=== PATIENT | male | born 1985 | race Caucasian/White ===

== ENCOUNTER 2025-02-04 15:51 | Inpatient (IN) | payer OTHER ==
[~2025-02-04] VITALS: Ht 167.6 cm; Wt 77.3 kg
[2025-02-04 16:34] LABS: PLATELET COUNT (AUTO) 396 K/uL (150-450); RED BLOOD CELL COUNT(AUTO) 5.00 MIL/uL (4.50-5.90); RED CELL DISTRIBUTION WIDTH 12.6 % (11.5-14.5); WHITE BLOOD COUNT (AUTO) 9.5 K/uL (4.5-11.0)
[2025-02-04 16:39] LABS: APPEARANCE,URINE CLEAR (CLEAR); GLUCOSE, URINE (UA) NEGATIVE (NEGATIVE); LEUKOCYTE ESTERASE ,URINE NEGATIVE (NEGATIVE); NITRATE,URINE NEGATIVE (NEGATIVE); OCCULT BLOOD,URINE NEGATIVE (NEGATIVE); PH,URINE DRUG SCREEN 8.0 (5.0-8.0); SPECIFIC GRAVITIY, URINE 1.011 (1.003-1.030)
[2025-02-04 16:41] LABS: CALCIUM, TOTAL 9.5 mg/dL (8.8-10.5); CREATININE 0.96 mg/dL (0.60-1.30); GLOMERULAR FILTR. RATE CALC > 60 mL/min (>60); GLUCOSE,RANDOM 112 mg/dL (70-110); SODIUM SERUM 137 mmol/L (136-145); UREA NITROGEN, BLOOD 12 mg/dL (7-18)
[2025-02-04 16:46] LABS: AMPHET/METH SCREEN,URINE POSITIVE (NEGATIVE); BARBITURATE SCREEN, URINE NEGATIVE (NEGATIVE); CANNABINOID SCREEN,URINE POSITIVE (NEGATIVE); COCAINE SCREEN,URINE NEGATIVE (NEGATIVE); METHADONE SCREEN, URINE NEGATIVE (NEGATIVE)
[2025-02-04 16:48] LABS: ASPARTATE AMINOTRANSFERASE 25.0 U/L (15-37); TOTAL PROTEIN, SERUM 8.5 g/dL (6.4-8.2)
[2025-02-04 16:54] LABS: ALCOHOL, URINE DRUG SCREEN NEGATIVE (NEGATIVE)
[2025-02-04] MEDS: SODIUM CHLORIDE 0.9% 1,000 ML IV ONE (16:55)
[2025-02-04] MEDS: ONDANSETRON HCL 4 MG/2 ML VIAL IVP ONE (16:56)
[2025-02-04] MEDS: KETOROLAC TROMETHAMINE 30 MG/ML VIAL IVP ONE ×2 (17:06→17:14)
[2025-02-04] MEDS ORDERED: MAGNESIUM HYDROXIDE SUSPENSION 30 ML UDCUP PO PRN (18:15)
[2025-02-04] MEDS: FAMOTIDINE 20 MG TABLET PO SCH (21:00)
[2025-02-04 21:29] VITALS: BP 135/89; PULSE 83; RESP 17; TEMP 97.9; O2SAT 99
[2025-02-04] MEDS: ACETAMINOPHEN 325 MG TABLET PO PRN (21:38)
[2025-02-04] MEDS: ZOLPIDEM TARTRATE 5 MG TABLET PO PRN (21:38)
[2025-02-05] MEDS: LORazepam 2 MG/ML VIAL IVP PRN (03:32)
[2025-02-05 03:35] VITALS: BP 127/85; PULSE 94; RESP 18; TEMP 98.7; O2SAT 100
[2025-02-05 08:28] VITALS: BP 131/81; PULSE 79; RESP 18; TEMP 98.2; O2SAT 100
[2025-02-05 15:17] VITALS: BP 120/76; PULSE 90; RESP 18; TEMP 97.9; O2SAT 100
[2025-02-05 21:53] VITALS: BP 124/76; PULSE 91; RESP 20; TEMP 97.7; O2SAT 97
[2025-02-06 03:37] VITALS: BP 109/66; PULSE 87; RESP 18; TEMP 97.3; O2SAT 99
[2025-02-06] MEDS: ONDANSETRON HCL 4 MG/2 ML VIAL IVP PRN (03:43)
[2025-02-06 09:15] VITALS: BP 136/92; PULSE 81; RESP 18; TEMP 97.3; O2SAT 97
[2025-02-06 12:41] VITALS: BP 136/92; PULSE 81; RESP 18; TEMP 97.3; O2SAT 97
[2025-02-06] MEDS ORDERED: ACETAMINOPHEN 325 MG TABLET PO PRN (14:15)
[2025-02-06] MEDS ORDERED: PROMETHAZINE HCL 25 MG TABLET PO PRN (14:15)
[2025-02-06] MEDS ORDERED: IBUPROFEN 600 MG TABLET PO PRN (14:15)
[2025-02-06] MEDS ORDERED: LOPERAMIDE HCL 2 MG/15 ML SUSPENSION UDCUP PO PRN (14:15)
[2025-02-06] MEDS ORDERED: MAG HYDROX/ALUMINUM HYD/SIMETH ES 30 ML SUSPENSION UDCUP PO PRN ×2 (14:15)
[2025-02-06] MEDS ORDERED: SODIUM CHLORIDE 0.45% 1,000 ML IV SCH (14:15)
[2025-02-06] MEDS: IBUPROFEN 600 MG TABLET PO PRN (15:45)
[2025-02-06] MEDS: DICYCLOMINE HCL 10 MG CAPSULE PO PRN (15:45)
[2025-02-06] MEDS: BACLOFEN 10 MG TABLET PO PRN (15:46)
[2025-02-06 17:40] VITALS: BP 136/92; PULSE 81; RESP 18; TEMP 97.3; O2SAT 97
[2025-02-06 19:54] VITALS: BP 103/67; PULSE 66; RESP 18; TEMP 98.1; O2SAT 99
[2025-02-06 22:14] VITALS: BP 113/71; PULSE 67; RESP 18; O2SAT 97
[2025-02-07 03:59] VITALS: BP 118/76; PULSE 65; RESP 18; TEMP 97.7; O2SAT 97
[2025-02-07 08:00] VITALS: BP 113/72; PULSE 72; RESP 20; TEMP 98.4; O2SAT 98
[2025-02-07 08:47] VITALS: BP 113/72; PULSE 72; RESP 20; TEMP 98.4; O2SAT 98
[2025-02-07 14:15] VITALS: BP 113/72; PULSE 72; RESP 20; TEMP 98.4; O2SAT 98
== END 2025-02-07 18:00 | DRG 897 ==
LOC: EMS 15:51 → EDH 18:08 → 6N 21:16
PROVIDERS: ADMIT Internal Medicine; ATTEND Internal Medicine
DX: F11.13 Opioid abuse with withdrawal (principal); F15.13 Other stimulant abuse with withdrawal; Z71.51 Drug abuse counseling and surveillance of drug abuser
CPT/HCPCS: 80048; 80076; 80307; 81003; 83690; 85025; 93005; 96361; 96374; 96375; 99285; J1885; J2060; J2405; 36415-L1; 36415-TC

== ENCOUNTER 2025-02-08 02:11 | Emergency (ER) | payer OTHER ==
[~2025-02-08] VITALS: Ht 175.3 cm; Wt 80.0 kg
[2025-02-08 02:48] VITALS: BP 118/71; PULSE 71; RESP 15; TEMP 98.2; O2SAT 98
== END 2025-02-08 05:51 ==
LOC: EMS 02:14
DX: F15.90 Other stimulant use, unspecified, uncomplicated (principal); F11.90 Opioid use, unspecified, uncomplicated; Z51.81 Encounter for therapeutic drug level monitoring
CPT/HCPCS: 99283; Z7502

== ENCOUNTER 2025-02-08 16:50 | Inpatient (IN) | payer OTHER ==
[~2025-02-08] VITALS: Ht 167.6 cm; Wt 75.0 kg
[2025-02-08] MEDS: BUPRENORPHINE HCL/NALOXONE HCL 8-2 MG SUBLINGUAL TABLET SL ONE (18:21)
[2025-02-08 18:25] LABS: PLATELET COUNT (AUTO) 414 K/uL (150-450); RED BLOOD CELL COUNT(AUTO) 4.87 MIL/uL (4.50-5.90); RED CELL DISTRIBUTION WIDTH 12.8 % (11.5-14.5); WHITE BLOOD COUNT (AUTO) 10.5 K/uL (4.5-11.0)
[2025-02-08 18:33] LABS: CALCIUM, TOTAL 9.0 mg/dL (8.8-10.5); CREATININE 1.15 mg/dL (0.60-1.30); GLOMERULAR FILTR. RATE CALC > 60 mL/min (>60); GLUCOSE,RANDOM 104 mg/dL (70-110); SODIUM SERUM 142 mmol/L (136-145); UREA NITROGEN, BLOOD 19 mg/dL (7-18)
[2025-02-08 22:30] VITALS: BP 125/73; PULSE 71; RESP 18; TEMP 97.9; O2SAT 100
[2025-02-09] MEDS: ZOLPIDEM TARTRATE 5 MG TABLET PO PRN (00:50)
[2025-02-09] MEDS ORDERED: ZOLPIDEM TARTRATE 5 MG TABLET PO PRN (03:00)
[2025-02-09] MEDS ORDERED: BISACODYL 10 MG RECTAL RECTAL SUPPOSITORY PR PRN (03:00)
[2025-02-09] MEDS ORDERED: ONDANSETRON HCL 4 MG/2 ML VIAL IVP PRN (03:00)
[2025-02-09] MEDS ORDERED: IPRATROPIUM BROMIDE 0.5 MG/2.5 ML NEB SOLUTION NEB PRN (03:00)
[2025-02-09] MEDS ORDERED: ALBUTEROL SULFATE 2.5 MG/0.5 ML NEB SOLUTION NEB PRN (03:00)
[2025-02-09] MEDS ORDERED: MAGNESIUM HYDROXIDE SUSPENSION 30 ML UDCUP PO PRN (03:00)
[2025-02-09] MEDS: ACETAMINOPHEN 325 MG TABLET PO PRN (03:42)
[2025-02-09 05:28] VITALS: BP 114/68; PULSE 68; RESP 17; TEMP 98.6; O2SAT 99
[2025-02-09 06:44] LABS: PLATELET COUNT (AUTO) 375 K/uL (150-450); RED BLOOD CELL COUNT(AUTO) 4.48 MIL/uL (4.50-5.90); RED CELL DISTRIBUTION WIDTH 12.7 % (11.5-14.5); WHITE BLOOD COUNT (AUTO) 8.5 K/uL (4.5-11.0)
[2025-02-09 06:52] LABS: CALCIUM, TOTAL 8.3 mg/dL (8.8-10.5); CREATININE 1.17 mg/dL (0.60-1.30); GLOMERULAR FILTR. RATE CALC > 60 mL/min (>60); GLUCOSE,RANDOM 120 mg/dL (70-110); SODIUM SERUM 142 mmol/L (136-145); UREA NITROGEN, BLOOD 16 mg/dL (7-18)
[2025-02-09] MEDS: PANTOPRAZOLE SODIUM 40 MG DR TABLET PO SCH (08:32)
[2025-02-09] MEDS: HEPARIN SODIUM,PORCINE 5,000 UNITS/ML VIAL SQ SCH (08:32)
[2025-02-09] MEDS: BUPRENORPHINE HCL/NALOXONE HCL 8-2 MG SUBLINGUAL TABLET SL SCH (08:33)
[2025-02-09 09:25] VITALS: BP 127/73; PULSE 61; RESP 19; TEMP 97.9; O2SAT 97
[2025-02-09 20:40] VITALS: BP 123/79; PULSE 69; RESP 20; TEMP 98.1; O2SAT 99
[2025-02-10 03:10] VITALS: BP 107/71; PULSE 66; RESP 20; TEMP 97.9; O2SAT 97
[2025-02-10 08:00] VITALS: BP 127/73; PULSE 69; RESP 20; TEMP 98.2; O2SAT 99
[2025-02-10] MEDS ORDERED: HYDR25TA83 PO (14:39)
[2025-02-10 20:25] VITALS: BP 111/72; PULSE 68; RESP 18; TEMP 98.4; O2SAT 98
[2025-02-11 03:42] VITALS: BP 115/70; PULSE 60; RESP 18; TEMP 97.9; O2SAT 99
== END 2025-02-11 06:25 | DRG 897 ==
LOC: EMS 16:50 → EDH 21:40 → 6S 22:25
PROVIDERS: ADMIT Hospitalist; ATTEND Hospitalist
DX: F11.13 Opioid abuse with withdrawal (principal); F15.10 Other stimulant abuse, uncomplicated; Z91.010 Allergy to peanuts
CPT/HCPCS: 80048; 85025; 99285; J1644